=== PATIENT | female | born 1940 | race Two or more races ===

== ENCOUNTER → 2022-08-26 | Emergency (ER) | payer OTHER ==
[~2022-08-26] VITALS: Ht 160 cm; Wt 45.4 kg
[~2022-08-26] MED LIST: ATORVASTATIN CA20 MG PO; CHILDREN'S ASPI81 MG PO; MEMANTINE HCL10 MG PO; METOPROLOL SUCC25 MG PO; OLANZAPINE ODT5 MG PO
== END | disposition home or self-care (01) ==
LOC: ER 15:06
DX: M79.89 Other specified soft tissue disorders (principal); M79.642 Pain in left hand

== ENCOUNTER 2022-09-04 09:33 | Inpatient (IN) | payer OTHER ==
[~2022-09-04] VITALS: Ht 157.5 cm; Wt 508.0 kg
[2022-09-04] MEDS ORDERED: ISOSORBIDE MONO30 M2 PO (10:00)
[2022-09-04] MEDS ORDERED: ELIQUIS2.5 MG PO (10:01)
--- NOTE | 2022-09-04 10:06 | NUR ---
SE RECIBE PTE ALERTA EN PERSONA EN AMBULANCIA EN COMPANIA DE FAMILIAR EL CUAL REFIERE PTE PRESENTE EDEMA EN BRAZO TEQUILA,FAMILIAR REFIERE PTE REFIERE PRESENTA DOLOR EN EL BRAZO TEQUILA.PTE VISITA LA CHINYERE DE EMERGENCIA EL PASADO MIERCOLES.SE DEUCE S/V Y SE UBICA.
--- NOTE | 2022-09-04 11:46 | NUR ---
SE EDUCA FAMILIAR SOBRE EL [place] MEDICO MEDICO Y RAFAELA REFIER EENTENDER. SE CANALZIA PACIENTE Y SE ADMINITRA MEDS DESTINEY ORDEN MEDICA. SE DEUCE MUESTRAS DE ERIC Y CULTIVO DE ERIC.
[2022-09-11] MEDS ORDERED: DONEPEZIL HCL5 MG (10:39)
[2022-09-11] MEDS ORDERED: LOPRESSOR25 MG (10:39)
[2022-09-11] MEDS ORDERED: TRAZODONE HCL50 MG (10:39)
[2022-09-17] MEDS ORDERED: ELIQUIS2.5 MG PO (13:19)
[2022-09-17] MEDS ORDERED: INTEGRA F CAPS1 EACH PO (13:19)
[2022-09-17] MEDS ORDERED: COZAAR50 MG PO (13:20)
[2022-09-17] MEDS ORDERED: ISOSORBIDE MONO30 MG PO (13:20)
[2022-09-17] MEDS ORDERED: LIPITOR20 MG PO (13:20)
[2022-09-17] MEDS ORDERED: NAMENDA10 MG PO (13:21)
[2022-09-17] MEDS ORDERED: TOPROL XL25 M1 PO (13:21)
== END 2022-09-17 16:47 | disposition home or self-care (01) | DRG 602 ==
LOC: ER 09:33 → MEDI 18:43
PROVIDERS: ADMIT Internal Medicine; ATTEND Internal Medicine
PROC: 30233N1 Transfusion of Nonautologous Red Blood Cells into Peripheral Vein, Percutaneous Approach (ICD-10-PCS; principal; 2022-09-04)
PROC: B54NZZZ Ultrasonography of Left Upper Extremity Veins (ICD-10-PCS; 2022-09-04)
PROC: BW24ZZZ Computerized Tomography (CT Scan) of Chest and Abdomen (ICD-10-PCS; 2022-09-05)
PROC: BW20YZZ Computerized Tomography (CT Scan) of Abdomen using Other Contrast (ICD-10-PCS; 2022-09-10)
DX: L03.114 Cellulitis of left upper limb (principal); A41.9 Sepsis, unspecified organism; J90 Pleural effusion, not elsewhere classified; G30.9 Alzheimer's disease, unspecified; F02.80 Dementia in other diseases classified elsewhere, unspecified severity, without behavioral disturbance, psychotic disturbance, mood disturbance, and anxiety; R13.19 Other dysphagia; E86.0 Dehydration; D64.9 Anemia, unspecified; I51.7 Cardiomegaly; Z74.01 Bed confinement status; E78.5 Hyperlipidemia, unspecified; D50.8 Other iron deficiency anemias; Z20.822 Contact with and (suspected) exposure to COVID-19; W20.1XXA Struck by object due to collapse of building, initial encounter; Y93.01 Activity, walking, marching and hiking; Y92.092 Bedroom in other non-institutional residence as the place of occurrence of the external cause; B95.61 Methicillin susceptible Staphylococcus aureus infection as the cause of diseases classified elsewhere; B96.89 Other specified bacterial agents as the cause of diseases classified elsewhere

== ENCOUNTER 2023-07-03 18:51 | Inpatient (IN) | payer OTHER ==
[~2023-07-03] VITALS: Ht 30.5 cm; Wt 63.0 kg
[~2023-07-03 18:51] MED LIST changes: +COZAAR50 MG PO; +DONEPEZIL HCL5 MG; +ELIQUIS2.5 MG PO; +INTEGRA F CAPS1 EACH PO; +ISOSORBIDE MONO30 M2 PO; +ISOSORBIDE MONO30 MG PO; +LIPITOR20 MG PO; +LOPRESSOR25 MG; +NAMENDA10 MG PO; +TOPROL XL25 M1 PO; +TRAZODONE HCL50 MG
[2023-07-03 20:30] LABS: HEMOGLOBIN 10.6 g/dL (12.0-15.00); MEAN CELL VOLUME 98.9 fL (80.00-100.00); MEAN CORPUSCULAR HEMOGLOBIN 34.9 pg (27.00-32.0); MEAN CORPUSCULAR HGB CONC 35.3 g/dl (32.0-36.0); PLATELET COUNT 117 K/uL (150-450); RED BLOOD COUNT 3.03 M/uL (4.00-6.00); RED CELL DISTRIBUTION WIDTH 15.6 % (11.5-14.5)
[2023-07-03 20:53] LABS: ALBUMIN 2.3 gm/dL (3.4-5.0); BILIRUBIN TOTAL 0.51 mg/dL (0.3-1.2); CALCIUM 9.2 mg/dL (8.5-10.1); CREATININE SERUM 0.73 mg/dL (0.55-1.02); GFR 75.95; GLOBULINA 3.2 G/DL (2.4-3.5); POTASSIUM 4.56 mEq/L (3.5-5.1); TOTAL PROTEIN 5.5 gm/dL (6.4-8.2)
[2023-07-03 20:54] LABS: INR 1.24; PROTHROMBIN TIME 12.8 SECONDS (9.0-11.5)
[2023-07-03 20:59] LABS: PARTIAL THROMBOPLASTIN TIME 40.5 SECONDS (22.0-34.0)
[2023-07-03 21:09] LABS: ABG PH 7.524 (7.35-7.45); ABG PO2 85.8 mmHg (80-100); ABG pCO2 28.3 mmHg (35-45); BASE EXCESS 1.3 mmol/l; BICARBONATE 22.8 mmol/l (23-25); SaO2 97.6 %; Tco2 23.7 mmol/l
[2023-07-03 21:10] LABS: o2 32 %
[2023-07-03 21:11] LABS: allen test SATISFACTORY; puncture site RADIAL RIGHT
[2023-07-04 02:53] LABS: URINE APPEARANCE Clear; URINE BILIRRUBIN Negative (NEGATIVE); URINE BLOOD Negative; URINE COLOR Dark Yellow; URINE GLUCOSE Negative (NEGATIVE); URINE LEUKOCYTE Trace; URINE NITRATE Negative; URINE PROTEIN Trace (NEGATIVE)
[2023-07-04 02:57] LABS: URINE EPITHELIAL CELLS 10.2 uL (0.0-38.8); URINE RBC 45.2 uL (0.0-20.8); URINE WBC 4.1 uL (0.0-23.2)
[2023-07-05 06:30] LABS: HEMATOCRIT 29.7 % (36.0-45.00); HEMOGLOBIN 10.7 g/dL (12.0-15.00); MEAN CELL VOLUME 96.2 fL (80.00-100.00); MEAN CORPUSCULAR HEMOGLOBIN 34.6 pg (27.00-32.0); MEAN CORPUSCULAR HGB CONC 35.9 g/dl (32.0-36.0); PLATELET COUNT 133 K/uL (150-450); RED BLOOD COUNT 3.08 M/uL (4.00-6.00); RED CELL DISTRIBUTION WIDTH 15.2 % (11.5-14.5)
[2023-07-05 07:20] LABS: D DIMER 2.63 MG/L; INR 1.18; PROTHROMBIN TIME 12.2 SECONDS (9.0-11.5)
[2023-07-05 07:21] LABS: ALBUMIN 2.3 gm/dL (3.4-5.0); BILIRUBIN TOTAL 0.33 mg/dL (0.3-1.2); CALCIUM 8.4 mg/dL (8.5-10.1); CREATININE SERUM 0.56 mg/dL (0.55-1.02); GFR 103.13; PARTIAL THROMBOPLASTIN TIME 39.6 SECONDS (22.0-34.0); POTASSIUM 3.74 mEq/L (3.5-5.1); T4 FREE 1.09 NG/ML (0.76-1.46); TOTAL PROTEIN 5.3 gm/dL (6.4-8.2); TSH 1.37 uIU/mL (0.358-3.74)
[2023-07-05 07:22] LABS: CKMB 2.4 NG/ML (0.5-3.6)
[2023-07-05 07:25] LABS: C-REACTIVE PROTEIN 2.59 MG/DL (0.00-0.29)
[2023-07-05 07:37] LABS: C-REACTIVE PROTEIN 2.46 MG/DL (0.00-0.29); MAGNESIUM 1.4 mg/dL (1.8-2.4)
[2023-07-05 07:38] LABS: PHOSPHOROUS 1.8 mg/dL (2.5-4.9)
[2023-07-05 08:06] LABS: PLATELET ESTIMATE NORMAL (NORMAL)
[2023-07-06 08:45] LABS: MYCOPLASMA PNEUMONIAE IGM NON REACTIVE (NO REACTIVE)
[2023-07-08 06:26] LABS: HEMATOCRIT 30.3 % (36.0-45.00); HEMOGLOBIN 10.8 g/dL (12.0-15.00); MEAN CELL VOLUME 98.4 fL (80.00-100.00); MEAN CORPUSCULAR HEMOGLOBIN 34.9 pg (27.00-32.0); MEAN CORPUSCULAR HGB CONC 35.4 g/dl (32.0-36.0); PLATELET COUNT 164 K/uL (150-450); RED BLOOD COUNT 3.08 M/uL (4.00-6.00)
[2023-07-08 13:03] LABS: ALBUMIN 2.1 gm/dL (3.4-5.0); BILIRUBIN TOTAL 0.26 mg/dL (0.3-1.2); CALCIUM 8.6 mg/dL (8.5-10.1); CREATININE SERUM 0.52 mg/dL (0.55-1.02); GFR 112.34; GLOBULINA 2.9 G/DL (2.4-3.5); POTASSIUM 3.6 mEq/L (3.5-5.1)
[2023-07-08 13:21] LABS: PHOSPHOROUS 1.8 mg/dL (2.5-4.9)
[2023-07-09 06:55] LABS: HEMATOCRIT 31.8 % (36.0-45.00); HEMOGLOBIN 11.5 g/dL (12.0-15.00); MEAN CELL VOLUME 96.1 fL (80.00-100.00); MEAN CORPUSCULAR HEMOGLOBIN 34.7 pg (27.00-32.0); MEAN CORPUSCULAR HGB CONC 36.1 g/dl (32.0-36.0); PLATELET COUNT 172 K/uL (150-450); RED BLOOD COUNT 3.31 M/uL (4.00-6.00); RED CELL DISTRIBUTION WIDTH 15.2 % (11.5-14.5)
[2023-07-09 07:14] LABS: ALBUMIN 2.6 gm/dL (3.4-5.0); BILIRUBIN TOTAL 0.57 mg/dL (0.3-1.2); CALCIUM 9.1 mg/dL (8.5-10.1); CREATININE SERUM 0.51 mg/dL (0.55-1.02); GFR 114.89; GLOBULINA 3.1 G/DL (2.4-3.5); POTASSIUM 3.27 mEq/L (3.5-5.1); TOTAL PROTEIN 5.7 gm/dL (6.4-8.2)
[2023-07-09 07:19] LABS: C-REACTIVE PROTEIN 0.61 MG/DL (0.00-0.29); FERRITIN 721.3 NG/ML (8-252)
[2023-07-10 07:01] LABS: ALBUMIN 2.2 gm/dL (3.4-5.0); BILIRUBIN TOTAL 0.29 mg/dL (0.3-1.2); CALCIUM 8.8 mg/dL (8.5-10.1); CREATININE SERUM 0.64 mg/dL (0.55-1.02); GFR 88.41; GLOBULINA 2.5 G/DL (2.4-3.5); MAGNESIUM 1.7 mg/dL (1.8-2.4); POTASSIUM 4.15 mEq/L (3.5-5.1); TOTAL PROTEIN 4.7 gm/dL (6.4-8.2)
[2023-07-10 07:06] LABS: HEMATOCRIT 25.6 % (36.0-45.00); MEAN CELL VOLUME 97.5 fL (80.00-100.00); MEAN CORPUSCULAR HEMOGLOBIN 34.6 pg (27.00-32.0); MEAN CORPUSCULAR HGB CONC 35.5 g/dl (32.0-36.0); PLATELET COUNT 161 K/uL (150-450); RED BLOOD COUNT 2.63 M/uL (4.00-6.00)
[2023-07-10 07:26] LABS: HEMOGLOBIN 9.1 g/dL (12.0-15.00)
[2023-07-10 17:24] LABS: FERRITIN 573.5 NG/ML (8-252)
[2023-07-11 08:15] LABS: HEMATOCRIT 26.4 % (36.0-45.00); HEMOGLOBIN 9.5 g/dL (12.0-15.00); MEAN CORPUSCULAR HEMOGLOBIN 35.2 pg (27.00-32.0); PLATELET COUNT 179 K/uL (150-450); RED CELL DISTRIBUTION WIDTH 14.8 % (11.5-14.5)
[2023-07-11 08:41] LABS: ALBUMIN 2.1 gm/dL (3.4-5.0); ALKALINE PHOSPHATASE 89 U/L (50-136); ALT/SGPT 28 U/L (12-78); ANION GAP 3 (10.0-20.0); AST/SGOT 28 U/L (15-37); BLOOD UREA NITROGEN 15 mg/dL (7-18); BUN CREA RATIO 24 (7.0-25.0); CALCIUM 8.7 mg/dL (8.5-10.1); CARBON DIOXIDE 32 mEq/L (21-32); CHLORIDE 110 mmol/L (98-107); CREATININE SERUM 0.62 mg/dL (0.55-1.02); GLOBULINA 2.5 G/DL (2.4-3.5); GLUCOSE FASTING 92 mg/dL (65-100); LDH 227 U/L (84-246); OSMOLALITY SERUM 282 MOSM/KG (275-295); POTASSIUM 4.18 mEq/L (3.5-5.1); SODIUM 141 mmol/L (136-145); TOTAL PROTEIN 4.6 gm/dL (6.4-8.2)
[2023-07-11 08:43] LABS: C-REACTIVE PROTEIN < 0.29 MG/DL (0.00-0.29)
[2023-07-12 06:56] LABS: HEMATOCRIT 26.6 % (36.0-45.00); HEMOGLOBIN 9.5 g/dL (12.0-15.00); MEAN CELL VOLUME 97.7 fL (80.00-100.00); MEAN CORPUSCULAR HEMOGLOBIN 34.7 pg (27.00-32.0); MEAN CORPUSCULAR HGB CONC 35.5 g/dl (32.0-36.0); PLATELET COUNT 183 K/uL (150-450); RED BLOOD COUNT 2.72 M/uL (4.00-6.00); RED CELL DISTRIBUTION WIDTH 14.9 % (11.5-14.5)
[2023-07-12 07:22] LABS: BILIRUBIN TOTAL 0.4 mg/dL (0.3-1.2); CALCIUM 8.5 mg/dL (8.5-10.1); CREATININE SERUM 0.64 mg/dL (0.55-1.02); GFR 88.41; GLOBULINA 2.5 G/DL (2.4-3.5); POTASSIUM 3.97 mEq/L (3.5-5.1); TOTAL PROTEIN 4.5 gm/dL (6.4-8.2)
[2023-07-12 10:11] LABS: CA 125 13.5 U/mL (0.0-38.1); CA 15-3 19.6 U/mL (0.0-25.0)
== END 2023-07-12 18:57 | disposition home or self-care (01) | DRG 871 ==
LOC: ER 18:51 → MEDJ 07-04 11:14 → SEC-K 07-04 11:14 → MEDJ 07-04 16:35
PROVIDERS: Emergency Medicine; General Practice; Internal Medicine; Internal Medicine Hematology & Oncology; Internal Medicine Infectious Disease; ADMIT Specialist; ATTEND Specialist
PROC: BW24ZZZ Computerized Tomography (CT Scan) of Chest and Abdomen (ICD-10-PCS; 2023-07-03)
PROC: 02HV33Z Insertion of Infusion Device into Superior Vena Cava, Percutaneous Approach (ICD-10-PCS; 2023-07-04)
PROC: XW033E5 Introduction of Remdesivir Anti-infective into Peripheral Vein, Percutaneous Approach, New Technology Group 5 (ICD-10-PCS; principal; 2023-07-07)
PROC: 4A12X4Z Monitoring of Cardiac Electrical Activity, External Approach (ICD-10-PCS; 2023-07-08)
DX: A41.9 Sepsis, unspecified organism (principal); J09.X1 Influenza due to identified novel influenza A virus with pneumonia; U07.1 COVID-19; J47.1 Bronchiectasis with (acute) exacerbation; D61.818 Other pancytopenia; Z66 Do not resuscitate; F03.C0 Unspecified dementia, severe, without behavioral disturbance, psychotic disturbance, mood disturbance, and anxiety; J44.9 Chronic obstructive pulmonary disease, unspecified; D64.9 Anemia, unspecified; D50.9 Iron deficiency anemia, unspecified; I10 Essential (primary) hypertension; Z78.9 Other specified health status; Z74.01 Bed confinement status